=== PATIENT | male | born 1980 | race Caucasian/White ===

== ENCOUNTER 2017-01-31 23:37 | Emergency (ER) | payer BC, MEDICAID ==
--- NOTE | 2017-02-01 00:05 | Emergency Department Record ---
History of Present Illness - General Chief complaint: Eye Problem Stated complaint: L EYE FB Time Seen by Provider: 01/31/17 23:50 Source: Patient Mode of Arrival: Ambulatory Limitations: No limitations - History of Present Illness Initial comments: 36 yo male presents with a concern about a eye foreign body. Last Tuesday he was working under his car. He has had a foreign body sensation since that time. He is sensitive to light and the left eye is irritated. He does not wear glasses or contacts. His tetanus is up to date. chief complaint: Eye pain, Foreign body -: Days(s) Onset Description: Sudden Location: Left eye Place: Home If Injury: Other (debris working under a car) Eye Symptoms: Burning, Redness Severity: Moderate If Pain, Quality: Aching Consistency: Constant Context: Injury Associated Symptoms: None Treatments Prior to Arrival: None - Related Data Home Medications Medication Instructions Recorded Confirmed Last Taken No Home Med [NO HOME MEDS] 01/31/17 01/31/17 Unknown Allergies Allergy/AdvReac Type Severity Reaction Status Date / Time Penicillins AdvReac PT UNSURE Verified 01/31/17 23:46 OF REACTION Review of Systems Constitutional: Denies: Chills, Fever, Weakness Eyes: Reports: Eye discharge (clear tears), Eye pain, Photophobia, Vision change ENT: Denies: Congestion, Throat pain Respiratory: Denies: Cough Cardiovascular: Denies: Chest pain, Syncope Endocrine: Denies: Fatigue Gastrointestinal: Denies: Nausea, Vomiting Genitourinary: Denies: Dysuria, Frequency, Urgency Musculoskeletal: Denies: Arthralgia, Back pain, Myalgia Skin: Denies: Bruising, Change in color, Rash Neurological: Denies: Headache, Numbness, Weakness Psychiatric: Denies: Anxiety Hematological/Lymphatic: Denies: Easy bleeding, Easy bruising Physical Exam - General General Appearance: Alert, Oriented x3, Cooperative, No acute distress Limitations: No limitations - Head Head exam: Atraumatic, Normocephalic, Normal inspection - Eye Eye exam: PERRL, Conjunctival injection, EOMI. negative: Normal appearance, Nystagmus, Periorbital swelling, Periorbital tenderness Pupils: Normal accommodation. negative: Irregular, Unequal Visual acuity (L) = 20/: 30 (after alcaine drops) Image of Eyes: 1 - small visible metallic FB with associated rust ring, clear AC, no blood or cells, no cloudiness - ENT ENT exam: Normal exam Ear exam: Normal external inspection Nasal Exam: Normal inspection Mouth exam: Normal external inspection - Neck Neck exam: Normal inspection - Rectal Rectal exam: Deferred - exam: Deferred - Extremities Extremities exam: Normal inspection - Neurological Neurological exam: Alert, Normal gait, Oriented X3, Reflexes normal - Psychiatric Psychiatric exam: Normal affect, Normal mood - Skin Skin exam: Dry, Intact, Normal color, Warm Course Vital Signs 01/31/17 23:41 Temperature 98.6 F Pulse Rate [ 78 Pulse Ox Probe] Respiratory 18 Rate Blood Pressure 144/86 [Left Arm] Pulse Ox 99 - Reevaluation(s) Reevaluation #1: the eye was stained with BioGlo a small area of up take was noted at the 2 o clock position under magnification a FB was visible Slit lamp was performed a small round metallic FB was confirmed the eye was anesthetized with alcaine with relief of FB symptoms [facility] after analgesia was 20/30 the FB was gently removed with the tip of an otic curettes there was a residual rust ring and possibly small FB he was given antibiotics in the ED and a referral for ophthalmology he was instructed to call tomorrow to be seen 02/01/17 00:08 Disposition Disposition: Discharge Clinical Impression: Eye foreign body Qualifiers: Encounter type: initial encounter Laterality: left Qualified Code(s): T15.92XA - Foreign body on external eye, part unspecified, left eye, initial encounter Disposition: Home, Self-Care Condition: (1) Good Instructions: Eye Foreign Body (ED) Additional Instructions: Call Dr Arana office tomorrow for follow up of the FB and rust ring of the left eye Return to the ER sooner if you have any uncontrolled pain or vision changes Take the antibiotics as directed every 4 hours even at night Referrals: ZACH ARANA [MEDICAL DOCTOR] - Forms: Patient Portal Access Time of Disposition: 00:12
[2017-02-01] MEDS ORDERED: OFLOXACIN 0.3% 5 ML OPTH SOLN OPTH SCH (00:15)
[2017-02-01] MEDS: PROPARACAINE HCL OPTH 15ML BTL OPTH ONE (00:24)
[2017-02-01] MEDS: OFLOXACIN 0.3% 5 ML OPTH SOLN OPTH STA (00:25)
== END 2017-02-01 00:32 | disposition home or self-care (01) ==
LOC: ER 23:37
DX: T15.92XA Foreign body on external eye, part unspecified, left eye, initial encounter (principal); Y92.009 Unspecified place in unspecified non-institutional (private) residence as the place of occurrence of the external cause
CPT/HCPCS: 65205; 99283

== ENCOUNTER 2018-01-24 17:29 | Emergency (ER) | payer MEDICAID ==
[2018-01-24] MEDS ORDERED: PROPARACAINE HCL OPTH 15ML BTL OPTH ONE (17:33)
--- NOTE | 2018-01-24 17:33 | Emergency Department Record ---
History of Present Illness - General Stated complaint: FB IN EYE Time Seen by Provider: 01/24/18 17:33 Source: Patient Mode of Arrival: Ambulatory Limitations: No limitations - History of Present Illness Initial comments: 37 yo male presents with a right eye foreign body sensation. At work he was carrying boxes and wind blew debris in his eyes. He has had a FB sensation in the right eye since. He was wearing safety glasses. He wears glasses but no contacts. Minimal light sensation. He has an data services developer in [place] chief complaint: Eye pain, Foreign body -: Hour(s) Onset Description: Sudden Location: Right eye Place: Work If Injury: Other (Debris) Eye Symptoms: Burning Severity: Moderate If Pain, Quality: Aching Consistency: Constant Context: Trauma Associated Symptoms: None Treatments Prior to Arrival: None - Related Data Allergies Allergy/AdvReac Type Severity Reaction Status Date / Time Penicillins AdvReac PT UNSURE Verified 01/24/18 17:39 OF REACTION Review of Systems Constitutional: Denies: Chills, Fever, Malaise, Weakness Eyes: Reports: Eye pain. Denies: Eye discharge, Photophobia, Vision change ENT: Denies: Congestion, Throat pain Respiratory: Denies: Cough, Dyspnea, Hemoptysis, Stridor, Wheezes Cardiovascular: Denies: Chest pain, Palpitations, Syncope Endocrine: Denies: Fatigue, Polydipsia, Polyuria Gastrointestinal: Denies: Abdominal pain, Diarrhea, Nausea, Vomiting Genitourinary: Denies: Dysuria, Frequency, Hematuria Musculoskeletal: Denies: Arthralgia, Back pain, Joint swelling, Myalgia Skin: Denies: Bruising, Change in color, Rash Neurological: Denies: Headache, Vertigo Psychiatric: Denies: Anxiety Hematological/Lymphatic: Denies: Easy bleeding, Easy bruising, Swollen glands Past Medical History - SOCIAL HISTORY Smoking Status: Current every day smoker Drug Use: None - RESPIRATORY Hx Respiratory Disorders: No - CARDIOVASCULAR Hx Cardio Disorders: No - NEURO Hx Neuro Disorders: No - GI Hx GI Disorders: No - Hx Genitourinary Disorders: No - ENDOCRINE Hx Endocrine Disorders: No - MUSCULOSKELETAL Hx Musculoskeletal Disorders: No - PSYCH Hx Psych Problems: No - HEMATOLOGY/ONCOLOGY Hx Hematology/Oncology Disorders: No Physical Exam - General General Appearance: Alert, Oriented x3, Cooperative, No acute distress Limitations: No limitations - Head Head exam: Normal inspection - Eye Eye exam: PERRL, Conjunctival injection (mild), EOMI. negative: Normal appearance, Periorbital swelling, Periorbital tenderness, Scleral icterus Pupils: Normal accommodation. negative: Irregular, Unequal Visual acuity (L) = 20/: 50 Visual acuity (R) = 20/: 50 - ENT ENT exam: Normal exam Ear exam: Normal external inspection Nasal Exam: Normal inspection Mouth exam: Normal external inspection - Neck Neck exam: Normal inspection - Cardiovascular Cardiovascular Exam: Regular rate, Normal rhythm, Normal heart sounds - Extremities Extremities exam: Normal inspection - Back Back exam: Reports: Normal inspection - Neurological Neurological exam: Alert, Normal gait, Oriented X3 - Psychiatric Psychiatric exam: Normal affect, Normal mood - Skin Skin exam: Dry, Intact, Normal color, Warm Course - Reevaluation(s) Reevaluation #1: Wood's Lamp. Pin point uptake right eye lateral edge of the pupil with visible metallic FB Slit Lamp. Clear AC, no blood or abnormal finding. FB noted lateral edge of the pupil. Metallic Alcaine drops were placed. The FB was easily removed Residual rust ring noted The eye was irrigated No residue FB seen We discussed follow up with his data services developer tomorrow for a recheck. 01/24/18 18:08 Disposition Disposition: Discharge Clinical Impression: Corneal foreign body Qualifiers: Encounter type: initial encounter Laterality: right Qualified Code(s): T15.01XA - Foreign body in cornea, right eye, initial encounter Disposition: Home, Self-Care Condition: (1) Good Instructions: Eye Foreign Body (ED) Additional Instructions: Motrin for pain Use sun glasses for comfort Call your eye doctor tomorrow to recheck the eye and examine the rust left behind Time of Disposition: 18:12 Quality - Quality Measures Quality Measures: N/A - Blood Pressure Screening Does Patient Have Any of the Following: No Blood Pressure Classification: Hypertensive Reading Systolic Measurement: 143 Diastolic Measurement: 66 Screening for High Blood Pressure: < Pre-Hypertensive BP, F/U Documented > [ G8950] Pre-Hypertensive Follow-up Interventions: Referral to alternative/primary care provider.
[2018-01-24] MEDS ORDERED: POLYMYXIN B SULF/TRIMETHOPRIM 10ML BTL OPTH ONE (18:02)
== END 2018-01-24 18:19 | disposition home or self-care (01) ==
LOC: ER 17:29
DX: T15.01XA Foreign body in cornea, right eye, initial encounter (principal); W22.8XXA Striking against or struck by other objects, initial encounter; Y92.63 Factory as the place of occurrence of the external cause; Y99.0 Civilian activity done for income or pay; F17.210 Nicotine dependence, cigarettes, uncomplicated
CPT/HCPCS: 65222 ×2; 99283 ×2; J3490

== ENCOUNTER 2018-09-14 17:34 | Emergency (ER) | payer SELFPAY ==
[2018-09-14] MEDS ORDERED: PROPARACAINE HCL OPTH 15ML BTL OPTH ONE (17:53)
[2018-09-14] MEDS ORDERED: ERYTHROMYCIN OPTH OINT 3.5GM OPTH ONE (18:08)
[2018-09-14] MEDS ORDERED: Diph,Pert(Acell),Tet Vac 0.5 ML SYR IM ONE (18:09)
--- NOTE | 2018-09-14 18:16 | Emergency Department Record ---
History of Present Illness - General Chief complaint: Eye Problem Stated complaint: SOMETHING IN RIGHT EYE Time Seen by Provider: 09/14/18 17:53 Source: Patient Mode of Arrival: Ambulatory Limitations: No limitations - History of Present Illness Initial comments: 38 yo male presents with right eye pain and redness. He wears glasses but no contacts. He did not bring his corrective lenses today. He was working about 5 days ago ago debris and metal shavings. He has a FB sensation in the right eye. He does not know when his last tetanus shot was given. He was wearing safety glasses. chief complaint: Eye redness, Foreign body Onset/Timin -: Days(s) Onset Description: Sudden Location: Right eye Place: Work Eye Symptoms: Blurry vision, Decreased vision, Foreign body sensation, Itching, Pain, Redness Severity: Moderate Severity scale (1-10): 7 If Pain, Quality: Aching Consistency: Constant Associated Symptoms: None Treatments Prior to Arrival: None - Related Data Visual acuity (L) = 20/: 70 Visual acuity (R) = 20/: 70 With correction: No Hx Tetanus Toxoid Vaccination: No Patient Tetanus UTD (within 5 yrs): No Allergies Allergy/AdvReac Type Severity Reaction Status Date / Time Penicillins AdvReac PT UNSURE Verified 09/14/18 17:48 OF REACTION Travel Screening - Travel/Exposure Within Last 30 Days Have you traveled within the last 30 days?: No Review of Systems Constitutional: Denies: Chills, Fever, Malaise, Weakness Eyes: Reports: Eye pain, Photophobia ENT: Denies: Congestion, Throat pain Respiratory: Denies: Cough Cardiovascular: Denies: Chest pain Gastrointestinal: Denies: Melena, Nausea, Vomiting Genitourinary: Denies: Dysuria Musculoskeletal: Denies: Arthralgia Skin: Denies: Bruising, Change in color, Rash Neurological: Denies: Headache Psychiatric: Denies: Anxiety Hematological/Lymphatic: Denies: Easy bleeding, Easy bruising Past Medical History - SOCIAL HISTORY Smoking Status: Current every day smoker Alcohol Use: None Drug Use: None - RESPIRATORY Hx Respiratory Disorders: No - CARDIOVASCULAR Hx Cardio Disorders: No - NEURO Hx Neuro Disorders: No - GI Hx GI Disorders: No - Hx Genitourinary Disorders: No - ENDOCRINE Hx Endocrine Disorders: No - MUSCULOSKELETAL Hx Musculoskeletal Disorders: No - PSYCH Hx Psych Problems: No - HEMATOLOGY/ONCOLOGY Hx Hematology/Oncology Disorders: No Family Medical History Any Significant Family History?: No Physical Exam - General General Appearance: Alert, Oriented x3, Cooperative, No acute distress Limitations: No limitations - Head Head exam: Atraumatic - Eye Eye exam: PERRL, Conjunctival injection, EOMI. negative: Normal appearance Pupils: negative: Irregular, Unequal With correction: No Image of Eyes: 1 - pupil, round, reactive, equal 2 - Metal FB with rust ring, AC is clear - ENT ENT exam: Normal exam Ear exam: Normal external inspection Nasal Exam: Normal inspection Mouth exam: Normal external inspection - Neck Neck exam: Normal inspection - Neurological Neurological exam: Alert, Oriented X3 - Psychiatric Psychiatric exam: Normal affect, Normal mood - Skin Skin exam: Dry, Intact, Normal color, Warm Course Vital Signs 09/14/18 17:41 Temperature 99.0 F Pulse Rate 73 Respiratory 20 Rate Blood Pressure 120/78 Pulse Ox 98 - Reevaluation(s) Reevaluation #1: 09/14/18 18:13 Slit Lamp performed Right eye with easily identifiable FB. Appears consistent a metallic FB with rust ring. BioGlo applied. No streaming. No other FB or abrasions. The metallic foreign body was easily removed with a plastic currette but residual material appears imbedded within the addition rust ring There is no pricing consultant ophthalmology at [facility] currently I called ANGUS on-call for follow up The patient states he has an eye doctor in [place] He will call first thing in the morning. He is instructed to return if he can not get an appointment tomorrow He is to bring his glasses to all appointments so his corrected vision can be checked as well. 09/14/18 18:27 09/14/18 18:57 After the patient left, ANGUS Mccall called back The patient can be seen tomorrow in [place] The patient was called and a message was left for him to call the office first thing in the morning to be seen. 09/14/18 19:25 Disposition Disposition: Discharge Clinical Impression: Corneal rust ring of right eye Corneal foreign body Qualifiers: Encounter type: initial encounter Laterality: right Qualified Code(s): T15.01XA - Foreign body in cornea, right eye, initial encounter Disposition: Home, Self-Care Condition: (1) Good Instructions: Eye Foreign Body (ED) Additional Instructions: Call your eye doctor first thing in the morning If you are unable to get an appointment then return to be rechecked tomorrow Return sooner if worse or any uncontrolled pain Use the erythromycin ointment every 3-4 hours. Referrals: MESERET MCCALL M.D. [MEDICAL DOCTOR] - Forms: Patient Portal Access Time of Disposition: 18:30 Quality - Quality Measures Quality Measures: N/A - Blood Pressure Screening Does Patient Have Any of the Following: No Blood Pressure Classification: Pre-Hypertensive BP Reading Systolic Measurement: 120 Diastolic Measurement: 78 Screening for High Blood Pressure: < Pre-Hypertensive BP, F/U Documented > [ G8950] Pre-Hypertensive Follow-up Interventions: Referral to alternative/primary care provider.
[2018-09-14] MEDS ORDERED: HYDROCODONE/APAP 5/325MG TABLET PO ONE (18:24)
== END 2018-09-14 18:40 | disposition home or self-care (01) ==
LOC: ER 17:34
DX: T15.01XA Foreign body in cornea, right eye, initial encounter (principal); W22.8XXA Striking against or struck by other objects, initial encounter; Y92.63 Factory as the place of occurrence of the external cause; Y99.0 Civilian activity done for income or pay; F17.210 Nicotine dependence, cigarettes, uncomplicated
CPT/HCPCS: 65222; 90715; 96372; 99283; 99284

== ENCOUNTER 2019-05-06 10:43 | Emergency (ER) | payer OTHER ==
--- NOTE | 2019-05-06 11:32 | Emergency Department Record ---
History of Present Illness - General Chief complaint: Extremity Problem Stated complaint: L HAND INJURY Time Seen by Provider: 05/06/19 10:52 Source: Patient, RN notes reviewed Mode of Arrival: Ambulatory - History of Present Illness Initial comments: hit a wall with cat scratch or cat bite and hand is swollen Onset/Timin -: Days(s) Location: Left, Hand Radiation: Proximal, Distal Severity scale (1-10): 9 Quality: Aching Consistency: Constant, Intermittent Worsens with: Nothing, Exertion - Related Data Previous Rx's Medication Instructions Recorded Doxycycline Hyclate 100 mg PO BID #20 cap 05/06/19 Allergies Allergy/AdvReac Type Severity Reaction Status Date / Time Penicillins AdvReac PT UNSURE Verified 05/06/19 10:51 OF REACTION Travel Screening - Travel/Exposure Within Last 30 Days Have you traveled within the last 30 days?: No - Travel/Exposure Within Last Year Have you traveled outside the [place] in the last year?: No - Additonal Travel Details Have you been exposed to anyone with a communicable illness?: No - Travel Symptoms Symptom Screening: None Review of Systems Reviewed: No additional complaints except as noted below Constitutional: Reports: As per HPI. Denies: Chills, Fever, Malaise, Night sweats, Weakness, Weight change Eyes: Reports: As per HPI. Denies: Eye discharge, Eye pain, Photophobia, Vision change ENT: Reports: As per HPI. Denies: Congestion, Dental pain, Ear pain, Epistaxis, Hearing loss, Throat pain Respiratory: Reports: As per HPI. Denies: Cough, Dyspnea, Hemoptysis, Stridor, Wheezes Cardiovascular: Reports: As per HPI. Denies: Arrhythmia, Chest pain, Dyspnea on exertion, Edema, Murmurs, Orthopnea, Palpitations, Paroxysmal nocturnal dyspnea, Rheumatic Fever, Syncope Endocrine: Reports: As per HPI. Denies: Fatigue, Heat or cold intolerance, Polydipsia, Polyuria Gastrointestinal: Reports: As per HPI. Denies: Abdominal pain, Constipation, Diarrhea, Hematemesis, Hematochezia, Melena, Nausea, Vomiting Genitourinary: Reports: As per HPI. Denies: Dysuria, Frequency, Hematuria, Incontinence, Retention, Testicular pain, Testicular mass, Urgency Musculoskeletal: Reports: As per HPI, Other (swollen left hand). Denies: Arthralgia, Back pain, Gout, Joint swelling, Myalgia, Neck pain Skin: Reports: As per HPI. Denies: Bruising, Change in color, Change in hair/nails, Lesions, Pruritus, Rash Neurological: Reports: As per HPI. Denies: Abnormal gait, Confusion, Headache, Numbness, Paresthesias, Seizure, Tingling, Tremors, Vertigo, Weakness Psychiatric: Reports: As per HPI. Denies: Anxiety, Auditory hallucinations, Depression, Homicidal thoughts, Suicidal thoughts, Visual hallucinations Hematological/Lymphatic: Reports: As per HPI. Denies: Anemia, Blood Clots, Easy bleeding, Easy bruising, Swollen glands Past Medical History - SOCIAL HISTORY Smoking Status: Current every day smoker Alcohol Use: Occasional Drug Use: None - RESPIRATORY Hx Respiratory Disorders: No - CARDIOVASCULAR Hx Cardio Disorders: No - NEURO Hx Neuro Disorders: No - GI Hx GI Disorders: No - Hx Genitourinary Disorders: No - ENDOCRINE Hx Endocrine Disorders: No - MUSCULOSKELETAL Hx Musculoskeletal Disorders: No - PSYCH Hx Psych Problems: No - HEMATOLOGY/ONCOLOGY Hx Hematology/Oncology Disorders: No Family Medical History Any Significant Family History?: No Physical Exam - General General Appearance: Alert, Oriented x3, Cooperative, No acute distress - Head Head exam: Normal inspection - Eye Eye exam: Normal appearance, PERRL Pupils: Normal accommodation - ENT ENT exam: Normal exam, Mucous membranes moist, Normal external ear exam, Normal orophraynx, TM's normal bilaterally Ear exam: Normal external inspection. negative: External canal tenderness Nasal Exam: Normal inspection. negative: Discharge, Sinus tenderness Mouth exam: Normal external inspection, Tongue normal Teeth exam: Normal inspection. negative: Dental caries Throat exam: Normal inspection. negative: Tonsillar erythema, Tonsillar exudate - Neck Neck exam: Normal inspection, Full ROM. negative: Tenderness - Respiratory Respiratory exam: Normal lung sounds bilaterally. negative: Respiratory distress - Cardiovascular Cardiovascular Exam: Regular rate, Normal rhythm, Normal heart sounds - GI/Abdominal GI/Abdominal exam: Soft, Normal bowel sounds. negative: Tenderness - Rectal Rectal exam: Deferred - exam: Deferred - Extremities Extremities exam: Normal capillary refill, Tenderness (painful swollen hand with puncture wounds on the top of the hand) - Back Back exam: Reports: Normal inspection, Full ROM. Denies: Muscle spasm, Rash noted, Tenderness - Neurological Neurological exam: Alert, Normal gait, Oriented X3, Reflexes normal - Psychiatric Psychiatric exam: Normal affect, Normal mood - Skin Skin exam: Dry, Intact, Normal color, Warm Course Vital Signs 05/06/19 10:44 Temperature 98.4 F Pulse Rate 96 H Respiratory 16 Rate Blood Pressure 144/82 Pulse Ox 99 Medical Decision Making - Data Complexity MDM Data: X-Ray Ordered and/or Reviewed (neg for fractures) Disposition Clinical Impression: Contusion Qualifiers: Encounter type: initial encounter Contusion area: hand Laterality: left Qualified Code(s): S60.222A - Contusion of left hand, initial encounter Cellulitis Qualifiers: Site of cellulitis: extremity Site of cellulitis of extremity: upper extremity Laterality: left Qualified Code(s): L03.114 - Cellulitis of left upper limb Disposition: Home, Self-Care Condition: (1) Good Instructions: Contusion in Adults (ED), Cellulitis (ED) Additional Instructions: ice and elevation follow up with family Dr in 3 days Prescriptions: Doxycycline Hyclate 100 mg PO BID #20 cap Forms: Patient Portal Access Time of Disposition: 11:43 Quality - Quality Measures Quality Measures: N/A - Blood Pressure Screening Does Patient Have Any of the Following: No Blood Pressure Classification: Pre-Hypertensive BP Reading Systolic Measurement: 144 Diastolic Measurement: 82 Screening for High Blood Pressure: < Pre-Hypertensive BP, F/U Documented > [G8950] Pre-Hypertensive Follow-up Interventions: Referral to alternative/primary care provider.
[2019-05-06] MEDS ORDERED: DOXYCYCLINE HYCLATE 100 MG CAPSULE PO ONE (11:42)
--- NOTE | 2019-05-07 09:07 | RADIOLOGY REPORT ---
EXAM: LEFT HAND, THREE VIEWS HISTORY: CAT SCRATCH AND BITE IN AREA OF PROXIMAL SECOND AND THIRD DIGITS. SWELLING. TECHNIQUE: Three views of the left hand were obtained. Comparison: None. Encounter: Initial. FINDINGS: There is normal bone mineralization. No acute fracture, dislocation, or destructive bone lesion is seen. The articular relations are grossly maintained. There are possible tiny metallic foreign bodies within the soft tissues of the distal second and fourth digits versus skin surface. There is dorsal soft tissue swelling at the level of the second and third MCP joints and metatarsals. No foreign body at this level. No subcutaneous emphysema. IMPRESSION: 1. NO ACUTE BONE NOR JOINT ABNORMALITY. PROBABLE OLD HEALED FRACTURE OF THE DISTAL ASPECT OF THE SECOND METACARPAL. 2. DORSAL SOFT TISSUE SWELLING AT THE LEVEL OF THE SECOND AND THIRD MCP JOINTS/METACARPALS WITHOUT FOREIGN BODY OR SUBCUTANEOUS EMPHYSEMA. 3. POSSIBLE TINY FOREIGN BODIES VERSUS SKIN SURFACE METALLIC DENSITIES INVOLVING THE DISTAL SECOND AND FOURTH DIGITS. JOB NUMBER: [id number] MTDD
== END 2019-05-06 11:48 | disposition home or self-care (01) ==
LOC: ER 10:43
DX: L03.114 Cellulitis of left upper limb (principal); W55.03XA Scratched by cat, initial encounter
CPT/HCPCS: 99283